=== PATIENT | male | born 1970 | race Caucasian/White ===

== ENCOUNTER 2017-11-14 21:42 | Emergency (ER) | payer OTHER ==
[~2017-11-14] VITALS: Ht 175.3 cm; Wt 56.7 kg
[~2017-11-14 21:42] MED LIST: FLEXERIL PO; MEDROLDOSEPACK PO; NOHOMEMEDICATIONS; NORCO 5-325 TA1 EACH PO; NORFLEX100 MG PO; PERCOCET 5-3251 EACH PO
[2017-11-14] MEDS ORDERED: TRAMADOL 50 MG50 MG PO (22:11)
[2017-11-14] MEDS ORDERED: AMOXICILLIN 50500 MG PO (22:11)
[2017-11-14 22:16] VITALS: BP 108/65
== END 2017-11-14 22:17 | disposition home or self-care (01) ==
LOC: M.ERS 21:42
DX: K08.89 Other specified disorders of teeth and supporting structures (principal)

== ENCOUNTER 2018-01-20 13:38 | Emergency (ER) | payer OTHER ==
[~2018-01-20] VITALS: Ht 175.3 cm; Wt 56.7 kg
[~2018-01-20 13:38] MED LIST changes: +AMOXICILLIN 50500 MG PO; +TRAMADOL 50 MG50 MG PO
[2018-01-20] MEDS ORDERED: MOBIC15 MG PO (14:14)
[2018-01-20 16:03] LABS: URINE BILIRUBIN NEGATIVE (Negative); URINE BLOOD NEGATIVE (Negative); URINE CLARITY CLEAR; URINE COLOR YELLOW; URINE GLUCOSE-RANDOM NEGATIVE (Negative); URINE KETONES NEGATIVE (Negative); URINE LEUKOCYTES-REFLEX NEGATIVE (Negative); URINE NITRITE-REFLEX NEGATIVE (Negative); URINE PROTEIN NEGATIVE (Negative); URINE UROBILINOGEN 0.2 E.U./dl (0.2-1.0)
[2018-01-20] MEDS ORDERED: ZANAFLEX4 MG PO (16:18)
[2018-01-20] MEDS ORDERED: NAPROSYN500 MG PO (16:18)
[2018-01-20] MEDS ORDERED: MEDROLDOSEPACK PO (16:18)
[2018-01-20 16:23] VITALS: BP 110/65
== END 2018-01-20 16:24 | disposition home or self-care (01) ==
LOC: M.ERS 13:38
PROVIDERS: Nurse Practitioner Family
DX: R36.9 Urethral discharge, unspecified (principal); R30.0 Dysuria; M54.31 Sciatica, right side; F41.9 Anxiety disorder, unspecified